=== PATIENT | female | born 1950 | race Caucasian/White ===

== ENCOUNTER 2017-11-26 10:07 | Day surgery (SDC) | payer MEDICARE, OTHER, MEDICAID ==
[2017-11-26] MEDS ORDERED: PROPOFOL 40 ML (11:30)
[2017-11-26] MEDS ORDERED: LIDOCAINE 2% (SDV) 5 ML INJ (11:30)
== END 2017-11-26 15:35 | disposition home or self-care (01) ==
LOC: GIL 10:07
DX: K92.1 Melena (principal); D12.6 Benign neoplasm of colon, unspecified; K64.8 Other hemorrhoids; E78.5 Hyperlipidemia, unspecified
CPT/HCPCS: 45380; 88305